=== PATIENT | male | born 1955 | race Caucasian/White ===

== ENCOUNTER 2021-12-06 07:17 | Day surgery (SDC) | payer OTHER ==
[~2021-12-06] VITALS: Ht 182.9 cm; Wt 123.4 kg
[~2021-12-06 07:17] MED LIST: CEPH500 PO; OXYACE5T PO; SERT100
--- NOTE | 2021-12-06 12:23 | NUR ---
12/06/21 1223 JAIR WOLFF POSTOPERATIVE NERVE BLOCK OPSITE IN STEPDOWN.
== END 2021-12-06 13:24 | disposition home or self-care (01) ==
LOC: ORSCSDS 07:17
PROVIDERS: Orthopaedic Surgery
PROC: 0LML0ZZ Reattachment of Right Upper Leg Tendon, Open Approach (ICD-10-PCS; principal; 2021-12-06 09:00)
DX: S76.111A Strain of right quadriceps muscle, fascia and tendon, initial encounter (principal); F17.210 Nicotine dependence, cigarettes, uncomplicated; E66.9 Obesity, unspecified; Z68.36 Body mass index [BMI] 36.0-36.9, adult
CPT/HCPCS: A9270; J0690; J1100; J2250; J2370; J2405; J2704; J3010